=== PATIENT | male | born 1965 | race American Indian/Alaskan Native ===

== ENCOUNTER 2018-08-08 00:55 | Emergency (ER) | payer MEDICAID ==
[2018-08-08 01:12] VITALS: BP 161/109; PULSE 64; RESP 20; TEMP 98.3; O2SAT 100
[2018-08-08] MEDS ORDERED: Morphine 4 MG/ML VIAL ONE (02:00)
[2018-08-08] MEDS ORDERED: oxyCODONE 10 mg Immediate Release Tab PO STA (02:00)
[2018-08-08] MEDS ORDERED: oxyCODONE 10 mg ER Tab (oxyCONTIN) PO STA (02:01)
[2018-08-08] MEDS ORDERED: Morphine 4 MG/ML VIAL IM STA (03:05)
--- NOTE | 2018-08-08 03:33 | ED PDOC ---
HPI: General Adult Time Seen by Provider: 08/08/18 01:10 Chief Complaint (Nursing): Pain, Chronic Chief Complaint (Provider): Chronic pain History Per: Patient History/Exam Limitations: no limitations Onset/Duration Of Symptoms: Days (x 2) Current Symptoms Are (Timing): Still Present Additional Complaint(s): 52 year old male with a history of sickle cell disease presented to ED for backache, leg and arm pain for past 2 days. Patient states he is on oxycodone and folic acid which he ran out of 3 days ago. His medical doctors are from [facility] but seems as though he has not visited his doctors recently. He denies having any fevers, headache, coughing or difficulty breathing. PMD: Non provided Past Medical History Reviewed: Historical Data, Nursing Documentation, Vital Signs Vital Signs: Last Vital Signs Temp 98.3 F 08/08/18 01:09 Pulse 64 08/08/18 01:09 Resp 20 08/08/18 01:09 BP 161/109 H 08/08/18 01:09 Pulse Ox 100 08/08/18 04:18 - Medical History PMH: Sickle Cell Disease - Surgical History Surgical History: No Surg Hx - Family History Family History: States: Unknown Family Hx - Home Medications Home Medications: Ambulatory Orders Medication Instructions Recorded Folic Acid 1 mg PO DAILY #30 tab 08/08/18 - Allergies Allergies/Adverse Reactions: Allergies Allergy/AdvReac Type Severity Reaction Status Date / Time ketorolac [From Toradol] Allergy HEADACHE Verified 08/08/18 01:13 meperidine [From Demerol] AdvReac FATIGUE Verified 08/08/18 01:13 Review of Systems ROS Statement: Except As Marked, All Systems Reviewed And Found Negative Constitutional: Positive for: Other (bodyache for 2 days ). Negative for: Fever Respiratory: Negative for: Cough, Other (difficulty breathing) Neurological: Negative for: Headache Physical Exam - Reviewed Nursing Documentation Reviewed: Yes Vital Signs Reviewed: Yes - Physical Exam Appears: Positive for: Uncomfortable Head Exam: Positive for: ATRAUMATIC, NORMAL INSPECTION, NORMOCEPHALIC Skin: Positive for: Normal Color, Warm, DRY Eye Exam: Positive for: EOMI, Normal appearance, PERRL ENT: Positive for: Normal ENT Inspection Neck: Positive for: Normal, Painless ROM, Supple Cardiovascular/Chest: Positive for: Regular Rate, Rhythm Respiratory: Positive for: CNT, Normal Breath Sounds Gastrointestinal/Abdominal: Positive for: Normal Exam, Soft. Negative for: Tenderness Extremity: Positive for: Normal ROM. Negative for: Deformity Neurologic/Psych: Positive for: Alert, Oriented (x3). Negative for: Motor/ Sensory Deficits - ECG O2 Sat by Pulse Oximetry: 100 Medical Decision Making Medical Decision Making: Time:02:00 Initial Impression: Sickle Cell Pain Initial Plan: -EKG Medications -02:00 Morphine 8 mg IM STAT -02:01 oxyCODONE 30 mg STAT -03:06 Morphine 8 mg IM STAT Scribe Attestation: Documented by Vernon Velazquez, acting as a scribe for Joanie Daigle MD ~ Provider Scribe Attestation: All medical record entries made by the Scribe were at my direction and personally dictated by me. I have reviewed the chart and agree that the record accurately reflects my personal performance of the history, physical exam, medical decision making, and the department course for this patient. I have also personally directed, reviewed, and agree with the discharge instructions and disposition Disposition - Clinical Impression Clinical Impression: Sickle cell pain crisis - Patient ED Disposition Is Patient to be Admitted: No Doctor Will See Patient In The: Office Counseled Patient/Family Regarding: Studies Performed, Diagnosis, Need For Followup - Disposition Disposition: Routine/Home Disposition Time: 04:00 Condition: GOOD Additional Instructions: JACKELIN MCKENZIE, thank you for letting us take care of you today. Your provider was Joanie Daigle MD and you were treated for SICKLE CELL CRISIS. The emergency medical care you received today was directed at your acute symptoms. If you were prescribed any medication, please fill it and take as directed. It may take several days for your symptoms to resolve. Return to the Emergency Department if your symptoms worsen, do not improve, or if you have any other problems. Please contact your doctor or call one of the physicians/clinics you have been referred to that are listed on the Patient Visit Information form that is included in your discharge packet. Bring any paperwork you were given at discharge with you along with any medications you are taking to your follow up visit. Our treatment cannot replace ongoing medical care by a primary care provider outside of the emergency department. Thank you for allowing the [facility] team to be part of your care today. If you had an X-Ray or CT scan: A Radiologist will review the ED reading if any change in treatment is needed we will contact you. If you had a blood, urine, or wound culture: It will take several days for the results, if any change in treatment is needed we will contact you. If you had an STI test: It will take 48 hours for the results. Please call after 1 week if you have not heard back. Prescriptions: Folic Acid 1 mg PO DAILY #30 tab Instructions: Sickle Cell Disease
== END 2018-08-08 04:15 | disposition home or self-care (01) ==
LOC: H.ER 00:55
DX: D57.00 Hb-SS disease with crisis, unspecified (principal)
CPT/HCPCS: 96372; 99284; J2270